=== PATIENT | female | born 1960 | race Caucasian/White ===

== ENCOUNTER 2021-04-08 15:41 | Emergency (ER) | payer OTHER ==
[~2021-04-08] VITALS: Ht 152.4 cm; Wt 59.0 kg
[2021-04-08 15:50] VITALS: BP 149/84
--- NOTE | 2021-04-08 16:00 | NUR ---
PT TAKEN TO BED 10.
--- NOTE | 2021-04-08 16:05 | NUR ---
61/F presents to ed with c/o dizziness, lightheadeness and fatigue on and off for the past 3-4 days. Pt c/o generalized weakness. Denies syncope. Denies chest pain, SOB, fever, chills, N/V/D. 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 No facial droop noted.
[2021-04-08 16:27] LABS: BASOPHILS # (AUTO) 0.1 K/uL (0.00-0.22); BASOPHILS % (AUTO) 1.1 % (0.0-2.0); EOSINOPHILS # (AUTO) 0.4 K/uL (0-0.4); EOSINOPHILS % (AUTO) 5.6 % (0.0-4.0); HEMATOCRIT 43.7 % (36-48); HEMOGLOBIN 14.7 g/dL (12.0-16.0); LYMPHOCYTES # (AUTO) 2.7 K/uL (2.5-16.5); LYMPHOCYTES % (AUTO) 38.7 % (20.5-51.1); MEAN CORPUSCULAR HEMOGLOBIN 29 pg (27-31); MEAN CORPUSCULAR HGB CONC 34 g/dL (33-37); MEAN CORPUSCULAR VOLUME 87.1 fL (80-94); MONOCYTES # (AUTO) 0.6 K/uL (0.8-1.0); MONOCYTES % (AUTO) 8.9 % (1.7-9.3); NEUTROPHILS # (AUTO) 3.2 K/uL (1.8-7.7); NEUTROPHILS % (AUTO) 45.7 % (42.2-75.2); PLATELET COUNT (AUTO) 359 K/uL (140-450); RED BLOOD CELL COUNT(AUTO) 5.01 MIL/uL (4.20-5.40); RED CELL DISTRIBUTION WIDTH 13.9 % (11.6-13.7); WHITE BLOOD COUNT (AUTO) 6.9 K/uL (4.8-10.8)
--- NOTE | 2021-04-08 16:33 | NUR ---
Consent for CT signed and placed in chart.
--- NOTE | 2021-04-08 16:36 | NUR ---
SENT ISA TO LAB RECEIVED BY STEPHANIE GOULD
[2021-04-08 16:40] LABS: ANION GAP 14.4 (8-16); CARBON DIOXIDE 25.5 mmol/L (21-32); CREATININE 0.8 mg/dL (0.6-1.3); POTASSIUM 3.9 mmol/L (3.5-5.1)
--- NOTE | 2021-04-08 17:18 | NUR ---
Patient taken to CT via w/c
--- NOTE | 2021-04-08 18:05 | NUR ---
Patient speaking to the doctor via teleneuro
[2021-04-08] MEDS ORDERED: CLOPIDOGREL 75 MG TAB PO ONE (18:25)
--- NOTE | 2021-04-08 18:47 | NUR ---
PATIENT REPORTS GETTING PFIZER VACCINATIONS. FULLY VACCINATED.
--- NOTE | 2021-04-08 19:16 | NUR ---
RECEIVED REPORT FROM STELLA RN FOR CONTINUITY OF CARE
[2021-04-08] MEDS ORDERED: OMEP20EC11 PO (19:17)
[2021-04-08] MEDS ORDERED: LOSA100T1 PO (19:17)
--- NOTE | 2021-04-08 23:09 | NUR ---
Patient to be transferred to [facility]. Is being transferred due to HLOC. Receiving facility has accepting physician and available space. ER physician has signed transfer form. Patient or responsible libertarian has agreed to transfer and signed form. Patient belongings inventoried and will be sent with patient. Copy of nursing notes, lab reports, EKG, Physicians Orders and X-rays to be sent with patient. Report called to Ryan KIRBY at receiving facility. [facility] ambulance service has been called for transfer. ETA is more than 2 hours.
--- NOTE | 2021-04-09 00:40 | NUR ---
[facility] TRANSPORT AT BEDSIDE
--- NOTE | 2021-04-09 00:49 | NUR ---
Pt transported by [facility] ([place] Belongings and paperwork sent with patient. VSS.
--- NOTE | 2021-04-09 00:49 | NUR ---
PT TAKEN BY [facility] TRANSPORT TO [facility] ROOM 112
[2021-04-09 00:50] VITALS: BP 158/75
== END 2021-04-09 00:49 | disposition short-term general hospital (02) ==
LOC: MED 15:41
DX: I63.9 Cerebral infarction, unspecified (principal); R53.1 Weakness; R51.9 Headache, unspecified; I10 Essential (primary) hypertension; Z88.6 Allergy status to analgesic agent; Z20.822 Contact with and (suspected) exposure to COVID-19
CPT/HCPCS: 36415; 70450; 71045; 80048; 81002; 84484; 85025; 93005; 99285